=== PATIENT | female | born 1960 | race Caucasian/White ===

== ENCOUNTER → 2022-08-21 | Outpatient (CLI) | payer OTHER, SELFPAY ==
[2022-08-21 12:26] LABS: Erythrocyte Sedimentation Rate 3 mm/hr (0-30)
[2022-08-21 13:06] LABS: CRP < 2.90 mg/L (0.0-3.0); Rheumatoid Factor < 10.0 IU/mL (<15)
[2022-08-22 13:08] LABS: ANTINUCLEAR ANTIBODIES DIRECT Negative (Negative)
[2022-08-22 16:09] LABS: Angiotensin Convert Enzyme 39 U/L (14-82)
== END | disposition home or self-care (01) ==
LOC: MTLAB 10:19
PROVIDERS: Referring Provider Internal Medicine Pulmonary Disease; Visit Provider Internal Medicine Pulmonary Disease
DX: J45.40 Moderate persistent asthma, uncomplicated (principal)
CPT/HCPCS: 36415; 82164; 85652; 86038; 86140; 86431